=== PATIENT | female | born 2000 | race Caucasian/White ===

== ENCOUNTER 2022-04-02 14:27 | Outpatient (CLI) | payer OTHER | END 2022-04-02 20:31 | disposition home or self-care (01) | LOC: GENOP 14:27 | DX: O47.1 False labor at or after 37 completed weeks of gestation (principal); O99.891 Other specified diseases and conditions complicating pregnancy; Z3A.38 38 weeks gestation of pregnancy | CPT/HCPCS: 59025; 81001; 84112 ==